=== PATIENT | male | born 1960 | race Caucasian/White ===

== ENCOUNTER 2022-07-29 08:33 | Outpatient (CLI) | payer OTHER ==
--- NOTE | 2022-07-29 11:32 | XRAY Report ---
PROCEDURE: Knee 3 View BILAT INDICATIONS: KNEE PAIN TECHNIQUE: 3 views of the bilateral knee(s) were acquired. COMPARISON: None. FINDINGS: Bones: No acute fractures. Moderate to severe left medial compartment joint space loss. Moderate to large tricompartment marginal spurs in the left knee. Moderate diffuse tricompartment joint space jacquie rowing in the right knee with small marginal spurs. Soft tissues: No knee joint effusion. No suspicious soft tissue calcifications or masses. No chondr ocalcinosis. Surgical clips in the right popliteal fossa. IMPRESSION: 1. Bilateral tricompartment osteoarthritis, worse on the left, and most severe in the medial compartm ent. 2. No joint effusions or chondrocalcinosis. Reviewed by: Nneka James MD on 07/29/2022 11:30 AM PDT Approved by: Nneka James MD on 07/29/2022 11:30 AM PDT Station ID: [id number]
== END 2022-07-29 08:34 | disposition home or self-care (01) ==
LOC: DI 08:33
PROVIDERS: ATTEND Internal Medicine Cardiovascular Disease
DX: M17.0 Bilateral primary osteoarthritis of knee (principal)